=== PATIENT | male | born 1945 | race Caucasian/White ===

== ENCOUNTER 2017-02-27 16:47 | Emergency (ER) | payer SELFPAY ==
[~2017-02-27 16:47] MED LIST: PERC5TAB12 PO
[2017-02-27 16:49] VITALS: BP 110/59; PULSE 64; RESP 20; TEMP 97.7; O2SAT 98
== END 2017-02-27 19:50 | disposition left against medical advice (07) ==
LOC: NED 16:47
DX: Z53.21 Procedure and treatment not carried out due to patient leaving prior to being seen by health care provider (principal)
CPT/HCPCS: 99281

== ENCOUNTER 2017-06-08 09:59 | Emergency (ER) | payer OTHER ==
[~2017-06-08] VITALS: Ht 167.6 cm; Wt 68.0 kg
[2017-06-08 10:00] VITALS: BP 120/56; PULSE 90; RESP 18; TEMP 98; O2SAT 96
--- NOTE | 2017-06-08 10:25 | PD ---
HPI Chief Complaint: GI Complaint Time Seen by Provider: 10:15 Travel History International Travel<30 days: No Contact w/Intl Traveler<30days: No Traveled to known affect area: No History of Present Illness HPI This is a 71-year-old male who presents to the emergency department with nausea vomiting and diarrhea that started yesterday after he ate 9-year-old rice and beans. He says he has had copious loose stools every time he goes to have flatus he is afraid he is given a defecate on himself. He denies any abdominal pain, fevers or chills. He says he feels weak but this is been going on for several weeks. He says his doctor put him on Prozac for depression. He decrease the dose because he felt like he was tired and at one point last week he slept 14 hours. He denies any thoughts of hurting himself. He doesn't live alone. Recently went back to his normal Prozac dose. He denies any recent antibiotic use. PFSH Past Medical History Diminished Hearing: Yes Social History Alcohol Use: No Tobacco Use: No Substance Use: No Allergies-Medications (Allergen,Severity, Reaction): Coded Allergies: No Known Allergies (Unverified , 10/18/13) Reported Meds & Prescriptions Reported Meds & Active Scripts Active Reported Prozac (Fluoxetine HCl) 20 Mg Cap 20 Mg PO DAILY Review of Systems Except as stated in HPI: all other systems reviewed are Neg Physical Exam Narrative GENERAL:Well appearing, no acute distress SKIN: Focused skin assessment warm and dry. HEAD: Atraumatic. Normocephalic. EYES: Pupils equal and round. No injection or drainage. ENT: Moist mucous membranes NECK: Trachea midline. CARDIOVASCULAR: Regular rate and rhythm. No murmur appreciated. RESPIRATORY: Clear to auscultation. Breath sounds equal bilaterally. GASTROINTESTINAL: Abdomen soft, non-tender, nondistended. MUSCULOSKELETAL: No obvious deformities. NEUROLOGICAL: Awake and alert. No obvious cranial nerve deficits. Moving all extremities. PSYCHIATRIC: Appropriate mood and affect; insight and judgment normal. Data Data Last Documented VS Vital Signs Date Time Temp Pulse Resp B/P Pulse Ox O2 Delivery O2 Flow Rate FiO2 06/08/17 10:29 18 06/08/17 10:00 98.0 90 120/56 96 Room Air Orders Sodium Chlor 0.9% 1000 Ml Inj (Ns 1000 M (06/08/17 10:30) Ondansetron Inj (Zofran Inj) (06/08/17 10:30) Complete Blood Count With Diff (06/08/17 10:22) Comprehensive Metabolic Panel (06/08/17 10:22) ^ Insert Iv (06/08/17 10:22) Urinalysis - C+S If Indicated (06/08/17 10:22) Electrocardiogram (06/08/17 ) Labs Laboratory Tests Test 06/08/17 10:39 White Blood Count 7.8 TH/MM3 Red Blood Count 4.20 MIL/MM3 Hemoglobin 14.3 GM/DL Hematocrit 40.1 % Mean Corpuscular Volume 95.5 FL Mean Corpuscular Hemoglobin 34.1 PG Mean Corpuscular Hemoglobin 35.7 % Concent Red Cell Distribution Width 12.1 % Platelet Count 136 TH/MM3 Mean Platelet Volume 7.5 FL Neutrophils (%) (Auto) 94.2 % Lymphocytes (%) (Auto) 1.3 % Monocytes (%) (Auto) 4.2 % Eosinophils (%) (Auto) 0.1 % Basophils (%) (Auto) 0.2 % Neutrophils # (Auto) 7.4 TH/MM3 Lymphocytes # (Auto) 0.1 TH/MM3 Monocytes # (Auto) 0.3 TH/MM3 Eosinophils # (Auto) 0.0 TH/MM3 Basophils # (Auto) 0.0 TH/MM3 CBC Comment DIFF FINAL Differential Comment Sodium Level 130 MEQ/L Potassium Level 3.9 MEQ/L Chloride Level 97 MEQ/L Carbon Dioxide Level 23.2 MEQ/L Anion Gap 10 MEQ/L Blood Urea Nitrogen 17 MG/DL Creatinine 1.33 MG/DL Estimat Glomerular Filtration 53 ML/MIN Rate Random Glucose 119 MG/DL Calcium Level 8.6 MG/DL Total Bilirubin 1.0 MG/DL Aspartate Amino Transf 11 U/L (AST/SGOT) Alanine Aminotransferase 19 U/L (ALT/SGPT) Alkaline Phosphatase 54 U/L Total Protein 7.0 GM/DL Albumin 3.9 GM/DL [facility] Medical Decision Making Medical Screen Exam Complete: Yes Emergency Medical Condition: Yes Interpretation(s) mild renal insufficiency Differential Diagnosis Food poisoning, gastroenteritis, appendicitis, colitis, dehydration, electrolyte abnormality Narrative Course This is a 71-year-old male who presents to the emergency department with vomiting and diarrhea in the setting of eating 9-year-old rice and beans. I suspect he has food poisoning. He was placed on a monitor and an IV was established. Labs are obtained which were reassuring with the exception of some mild renal insufficiency. He was given a liter of IV fluids and he feels much better. I think he can safely be discharged with Imodium and Zofran Diagnosis Primary Impression: Gastroenteritis Patient Instructions: General Instructions Additional Instructions: If you develop severe or worsening abdominal pain, fever>100.4, persistent vomiting or inability to eat or drink return to the emergency department immediately. Follow up with your primary care physician in 1-2 days for a check-up. Med/Other Pt SpecificInfo: Prescription(s) given Scripts Loperamide 2 Mg Cap2 Mg PO DIRECTED PRN (DIARRHEA) #10 CAP One capsule after each loose stool. Not to exceed 8 capsules per day. Prov:Angelica Vazquez MD 06/08/17 Ondansetron Odt (Zofran Odt)4 Mg Tab4 Mg SL Q6HR PRN (Nausea/Vomiting) #15 TAB Prov:Angelica Vazquez MD 06/08/17 Disposition: 01 DISCHARGE HOME Condition: Stable Angelica Vazquez MD Jun 08, 2017 10:25
[2017-06-08] MEDS ORDERED: ONDANSETRON HCL 4 MG/2 ML VIAL IV ONE (10:30)
[2017-06-08] MEDS ORDERED: SODIUM CHLOR 0.9% 1000 ML INJ 1,000 ML IV SCH (10:30)
[2017-06-08] MEDS ORDERED: PROZ20CA11 PO (10:33)
[2017-06-08 10:56] LABS: AUTOMATED NEUTROPHIL # 7.4 TH/MM3 (1.8-7.7); BASOPHIL % 0.2 % (0.0-2.0); EOSINOPHIL % 0.1 % (0.0-4.0); HEMATOCRIT 40.1 % (39.0-51.0); HEMO FLAGS DIFF FINAL; LYMPH % 1.3 % (9.0-44.0); LYMPHOCYTE # 0.1 TH/MM3 (1.0-4.8); MEAN CELL VOLUME 95.5 FL (80.0-100.0); MEAN CORPUSCULAR HEMOGLOBIN 34.1 PG (27.0-34.0); MEAN CORPUSCULAR HGB CONC 35.7 % (32.0-36.0); MONO % 4.2 % (0.0-8.0); NEUT % 94.2 % (16.0-70.0); PLATELET COUNT 136 TH/MM3 (150-450); RED CELL DISTRIBUTION WIDTH 12.1 % (11.6-17.2); WHITE BLOOD COUNT 7.8 TH/MM3 (4.0-11.0)
[2017-06-08 11:09] LABS: ANION GAP 10 MEQ/L (5-15); AST (GOT) 11 U/L (15-37); BICARBONATE 23.2 MEQ/L (21.0-32.0); BLOOD UREA NITROGEN 17 MG/DL (7-18); CHLORIDE 97 MEQ/L (98-107); GLOMERULAR FILTRATION RATE 53 ML/MIN (>89); POTASSIUM 3.9 MEQ/L (3.5-5.1); SODIUM (NA) 130 MEQ/L (136-145)
[2017-06-08 11:11] LABS: ALT (GPT) 19 U/L (12-78)
[2017-06-08 11:12] LABS: ALKALINE PHOSPHATASE 54 U/L (45-117)
[2017-06-08 11:30] VITALS: BP 118/60; PULSE 87; RESP 18; TEMP 98; O2SAT 98
[2017-06-08] MEDS ORDERED: ZOFR4TAB3 SL (11:39)
[2017-06-08] MEDS ORDERED: LOPE2CAP PO (11:39)
--- NOTE | 2017-06-09 15:04 | EKG ---
Date Performed: 06/08/2017 Time Performed: 10:39:49 PTAGE: 71 years EKG: Sinus rhythm Compared to prior tracing no significant change NORMAL ECG PREVIOUS TRACING : 10/18/2013 @ 1658 DOCTOR: Michele Slaughter Interpretating Date/Time 06/09/2017 15:03:18
== END 2017-06-08 11:57 | disposition home or self-care (01) ==
LOC: NEPD 09:59
DX: H91.90 Unspecified hearing loss, unspecified ear (principal); K52.9 Noninfective gastroenteritis and colitis, unspecified; N28.9 Disorder of kidney and ureter, unspecified; F32.9 Major depressive disorder, single episode, unspecified
CPT/HCPCS: 80053; 85025; 93005; 96361; 96374; 99284; J2405; J7030

== ENCOUNTER 2017-12-10 03:42 | Emergency (ER) | payer OTHER ==
[~2017-12-10] VITALS: Ht 167.6 cm; Wt 72.7 kg
[~2017-12-10 03:42] MED LIST changes: +LOPE2CAP PO; -PERC5TAB12 PO; +PROZ20CA11 PO; +ZOFR4TAB3 SL
[2017-12-10 03:44] VITALS: BP 130/74; PULSE 89; RESP 16; TEMP 98.5; O2SAT 98
--- NOTE | 2017-12-10 04:55 | PD ---
HPI Chief Complaint: Musculoskeletal Complaint Time Seen by Provider: 04:51 Travel History International Travel<30 days: No Contact w/Intl Traveler<30days: No Traveled to known affect area: No History of Present Illness HPI 72-year-old male presents to the emergency department for 1 week of myalgias arthralgias rhinorrhea and worsening of his allergies. Patient states that he has cramps and aches everywhere. Patient also complains of sore throat. Some occasional cough. Patient feels fatigue. Patient states that he typically can manage his allergies which she has had for at least 6 months but this is worse and tonight finally had had enough so decided to come in. Not aware of any fever but has not checked his temperature some mild chills. No vomiting no diarrhea no chest pain no shortness of breath no lower extremity swelling PFSH Past Medical History Narrative Medical COPD seasonal allergies diminished hearing tonsillectomy no tobacco use nursing notes reviewed COPD: Yes Diminished Hearing: Yes ([place] Respiratory: Yes (COPD) Tetanus Vaccination: Unknown Influenza Vaccination: No Past Surgical History Tonsillectomy: Yes Social History Alcohol Use: No (QUIT 5 YEARS AGO) Tobacco Use: No Substance Use: No Allergies-Medications (Allergen,Severity, Reaction): Coded Allergies: No Known Allergies (Unverified Adverse Reaction, Unknown, 12/10/17) Reported Meds & Prescriptions Reported Meds & Active Scripts Active No Active Prescriptions or Reported Medications Review of Systems Except as stated in HPI: all other systems reviewed are Neg Physical Exam Narrative GENERAL: Well-developed well-nourished male in no acute distress or respiratory distress SKIN: Warm and dry. HEAD: Normocephalic. EYES: No scleral icterus. No injection or drainage. ENT: Mucous membranes moist airway is patent NECK: Supple, trachea midline. No JVD or lymphadenopathy. CARDIOVASCULAR: Regular rate and rhythm without murmurs, gallops, or rubs. RESPIRATORY: Breath sounds equal bilaterally. No accessory muscle use. GASTROINTESTINAL: Abdomen soft, non-tender, nondistended. MUSCULOSKELETAL: No cyanosis, or edema. BACK: Nontender without obvious deformity. No CVA tenderness. Data Data Last Documented VS Vital Signs Date Time Temp Pulse Resp B/P (MAP) Pulse Ox O2 Delivery O2 Flow Rate FiO2 12/10/17 03:44 98.5 89 16 130/74 (92) 98 Orders Orders Influenzae A/B Antigen (12/10/17 04:00) Group A Rapid Strep Screen (12/10/17 04:00) Strep Culture (Group A) (12/10/17 04:00) MDM Medical Decision Making Medical Screen Exam Complete: Yes Emergency Medical Condition: Yes Medical Record Reviewed: Yes Interpretation(s) Rapid strep test: Negative Influenza A/B antigen: Positive influenza B Differential Diagnosis Viral syndrome influenza electrode disturbance; also consider DVT Narrative Course Rapid strep antigen is negative influenza B is positive Patient informed of positive flu test symptoms have been present for 5 days patient is not a candidate for Tamiflu but is satisfied with diagnosis and will go home and use as needed Tylenol and ibuprofen and increase fluid hydration. Patient is encouraged to follow-up with his primary care provider or return to the emergency department for any concerns Diagnosis Primary Impression: Influenza B Referrals: Primary Care Physician call for appointment Patient Instructions: General Instructions Additional Instructions: Increased/encourage fluid hydration Monitor temperature every 4 hours with the monitor take as needed acetaminophen/ Tylenol every 4 hours or ibuprofen/Advil/Motrin every 6-8 hours as tolerated for fever 100.4F or greater Follow-up with your primary care provider Return to the emergency department for any concerns or change in condition Med/Other Pt SpecificInfo: No Meds Exist/No RX given Scripts No Active Prescriptions or Reported Meds Disposition: 01 DISCHARGE HOME Condition: Stable Abigail Ware MD Dec 10, 2017 04:55
== END 2017-12-10 05:16 | disposition home or self-care (01) ==
LOC: NEPC 03:42
DX: J10.89 Influenza due to other identified influenza virus with other manifestations (principal); J02.9 Acute pharyngitis, unspecified; J34.89 Other specified disorders of nose and nasal sinuses; J44.9 Chronic obstructive pulmonary disease, unspecified; B95.4 Other streptococcus as the cause of diseases classified elsewhere
CPT/HCPCS: 87081; 87804; 87880; 99283